=== PATIENT | male | born 1965 | race Caucasian/White ===

== ENCOUNTER 2017-07-21 08:35 | Day surgery (SDC) | payer BC ==
[~2017-07-21 08:35] MED LIST: SOD CHLORIDE 0.9% 1,000 ML IV
[2017-07-21 09:19] LABS: ADD MAN DIFF? NO
[2017-07-21 09:24] LABS: WHITE BLOOD COUNT 8.4 10^3/ul (4.8-10.8)
[2017-07-21 09:24] LABS: BASOPHIL # 0.1 10^3/ul (0.0-0.1); BASOPHILS % 0.8 % (0.0-2.0); EOSINOPHILS # 0.3 10^3/ul (0.0-0.5); EOSINOPHILS % 4.1 % (0.0-7.0); HEMATOCRIT 47.8 % (42.0-52.0); HEMOGLOBIN 16.8 g/dl (14.0-18.0); LYMPHOCYTES # 2.4 10^3/ul (0.8-2.9); LYMPHOCYTES % 28.3 % (15.0-51.0); MEAN CORPUSCULAR HEMOGLOBIN 30.5 pg (29.0-33.0); MEAN CORPUSCULAR HGB CONC 35.1 g/dl (32.0-37.0); MEAN CORPUSCULAR VOLUME 86.8 fl (82.0-101.0); MONOCYTE # 0.8 10^3/ul (0.3-0.9); MONOCYTES % 9.6 % (0.0-11.0); NEUTROPHIL # 4.8 10^3/ul (1.6-7.5); NEUTROPHILS % 56.8 % (39.0-77.0); PLATELET COUNT 278 10^3/UL (140-415); RED BLOOD COUNT 5.51 10^6/ul (4.70-6.10); RED CELL DISTRIBUTION WIDTH 12.5 % (11.5-14.5)
[2017-07-21 09:46] LABS: ANION GAP 13 (8-16); CARBON DIOXIDE 26 mmol/L (21-31); CHLORIDE 106 mmol/L (97-110); GLUCOSE 94 mg/dl (70-220)
[2017-07-21 09:49] LABS: INR 1.57; PROTIME 19.1 Sec (11.9-14.9); PT RATIO 1.5; SODIUM 141 mmol/L (135-144)
[2017-07-21 09:50] LABS: BLOOD UREA NITROGEN 18 mg/dl (7-20); CALCIUM 9.3 mg/dl (8.4-10.2); CREATININE 0.85 mg/dl (0.61-1.24); POTASSIUM 4.1 mmol/L (3.5-5.1)
[2017-07-21] MEDS ORDERED: PROPOFOL 20 ML (10:20)
[2017-07-21] MEDS ORDERED: ONDANSETRON 4 MG INJ IV (11:30)
[2017-07-21] MEDS ORDERED: AL HYDROX/MG HYDROX/SIMETH 30 ML CUP PO (11:30)
[2017-07-21] MEDS ORDERED: ACETAMINOPHEN 325 MG TAB PO (11:30)
== END 2017-07-21 12:00 | disposition home or self-care (01) ==
LOC: SDS 08:35
DX: I48.91 Unspecified atrial fibrillation (principal); I10 Essential (primary) hypertension
CPT/HCPCS: 80048; 85025; 85610; 92960; 93005